=== PATIENT | male | born 1985 | race American Indian/Alaskan Native ===

== ENCOUNTER 2018-08-08 17:44 | Emergency (ER) | payer SELFPAY ==
[2018-08-08 17:58] VITALS: BP 121/89
== END 2018-08-08 22:30 | disposition left against medical advice (07) ==
LOC: ED 17:44
DX: R50.9 Fever, unspecified (principal); R07.89 Other chest pain; Z53.21 Procedure and treatment not carried out due to patient leaving prior to being seen by health care provider

== ENCOUNTER 2018-10-24 04:43 | Emergency (ER) | payer OTHER ==
[2018-10-24 04:50] VITALS: BP 129/84
--- NOTE | 2018-10-24 05:35 | XRay Report ---
PROCEDURE: XR CHEST ROUTINE 2V TECHNIQUE: PA and lateral chest radiographs were obtained. HISTORY: cough and chest pain COMPARISONS: June 17, 2018. FINDINGS: Heart: Normal. Mediastinum/Vessels: Normal. Lungs/Pleural space: Normal. Bony thorax: No acute osseous abnormality. IMPRESSION: Normal examination. This document is electronically signed by Nikolay Puga MD., October 24 2018 05:33:01 AM ET
--- NOTE | 2018-10-24 08:02 | Emergency Department Report ---
- General Chief Complaint: Chest Pain Stated Complaint: CHEST PAIN BODY CHILLS Time Seen by Provider: 10/24/18 07:50 Source: patient Mode of arrival: Ambulatory Limitations: No Limitations - History of Present Illness Initial Comments: Pt presents to the ED with c/o a cough that began two days ago. He has associated subjective fever, generalized body aches, mild SOB, and chest ti ghtness after an episode of frequent coughing. He denies any N/V, diaphoresis, sore throat, or any other symptoms. The patient states that he took motrin today for the subjective fever. He denies any PMHx. The patient states he gets bronchitis yearly. He denies any recent surgery, recent travel, or recent immobilization. He denies any personal or family hx of cardiac issues. - Related Data Previous Rx's Medication Instructions Recorded Last Taken Type Hyoscyamine Subl [Levsin Sl 0.125 0.125 mg SL Q6HR PRN #20 tab 06/17/18 Unknown Rx TAB] Ondansetron [Zofran Odt] 4 mg PO Q8HR #20 tab.rapdis 06/17/18 Unknown Rx ALBUTEROL Inhaler (OR & NICU) 2 puff IH QID PRN #200 inhalation 10/24/18 Unknown Rx [Proair] Azithromycin [Zithromax Z-SAQIB] 250 mg PO DAILY #6 tab 10/24/18 Unknown Rx Prednisone [predniSONE 10 mg 10 mg PO .TAPER #1 tab.ds.pk 10/24/18 Unknown Rx (6-Day Pack, 21 Tabs)] guaiFENesin/DEXTROMETHORPHAN 1 each PO Q8HR #20 capsule 10/24/18 Unknown Rx [Robitussin Trhky-Mdjcl-Rtlr Dm] Allergies Allergy/AdvReac Type Severity Reaction Status Date / Time aspirin AdvReac Unknown Verified 08/22/15 17:41 ED Review of Systems ROS: Stated complaint: CHEST PAIN BODY CHILLS Other details as noted in HPI Comment: All other systems reviewed and negative ED Past Medical Hx - Past Medical History Additional medical history: Chronic bronchitis - Surgical History Additional Surgical History: surgery to left 5th finger as a child. hernia repair - Social History Smoking Status: Current Every Day Smoker Substance Use Type: None - Medications Home Medications: Home Medications Medication Instructions Recorded Confirmed Last Taken Type Hyoscyamine Subl [Levsin Sl 0.125 0.125 mg SL Q6HR PRN #20 tab 06/17/18 Unknown Rx TAB] Ondansetron [Zofran Odt] 4 mg PO Q8HR #20 tab.rapdis 06/17/18 Unknown Rx ALBUTEROL Inhaler (OR & NICU) 2 puff IH QID PRN #200 inhalation 10/24/18 Unknown Rx [Proair] Azithromycin [Zithromax Z-SAQIB] 250 mg PO DAILY #6 tab 10/24/18 Unknown Rx Prednisone [predniSONE 10 mg 10 mg PO .TAPER #1 tab.ds.pk 10/24/18 Unknown Rx (6-Day Pack, 21 Tabs)] guaiFENesin/DEXTROMETHORPHAN 1 each PO Q8HR #20 capsule 10/24/18 Unknown Rx [Robitussin Ejzcx-Dclnm-Lpyw Dm] ED Physical Exam - General Limitations: No Limitations General appearance: alert, in no apparent distress - Head Head exam: Present: atraumatic, normocephalic - Eye Eye exam: Present: normal appearance - ENT ENT exam: Present: normal orophraynx, mucous membranes moist, normal external ear exam - Neck Neck exam: Present: normal inspection. Absent: meningismus - Respiratory Respiratory exam: Present: normal lung sounds bilaterally. Absent: respiratory distress, wheezes, rales, rhonchi, stridor, chest wall tenderness, accessory muscle use, decreased breath sounds, prolonged expiratory - Cardiovascular Cardiovascular Exam: Present: regular rate, normal rhythm, normal heart sounds. Absent: systolic murmur, rubs, gallop - Extremities Exam Extremities exam: Absent: pedal edema - Neurological Exam Neurological exam: Present: alert, oriented X3 - Psychiatric Psychiatric exam: Present: normal affect, normal mood ED Course Vital Signs 10/24/18 10/24/18 04:48 05:05 Temperature 98.7 F 98.7 F Pulse Rate 86 86 Respiratory 20 18 Rate Blood Pressure 129/84 129/84 O2 Sat by Pulse 99 Oximetry ED Medical Decision Making - EKG Data EKG shows normal: sinus rhythm, axis, intervals, QRS complexes, ST-T waves Rate: normal - Radiology Data Radiology results: report reviewed CXR no acute process - Medical Decision Making Pt presents with a cough x2 days. Associated subjective fever, generalized body aches, mild SOB, chest tightness after coughing. CXR and EKG are normal. Pt has no cardiac or PE/DVT risk factors. Pt states he gets bronchitis yearly. Will tx patient as acute bronchitis. Discussed with pt his results and advised to take all medication as prescribed. Advised pt to follow up with PCP in the next 2-3 days. Discussed with pt return to the ED if any new or worsening symptoms. - Differential Diagnosis Bronchitis, PNA, Viral syndrome, URI Critical care attestation.: If time is entered above; I have spent that time in minutes in the direct care of this critically ill patient, excluding procedure time. ED Disposition Clinical Impression: Acute bronchitis Qualifiers: Bronchitis organism: unspecified organism Qualified Code(s): J20.9 - Acute bronchitis, unspecified Disposition: - TO HOME OR SELFCARE Is pt being admited?: No Does the pt Need Aspirin: No Condition: Stable Instructions: Acute Bronchitis (ED) Additional Instructions: Follow up with primary care in the next 2-3 days. Return to the ED for any new or worsening symptoms. Take all medication as prescribed. Prescriptions: Prednisone [predniSONE 10 mg (6-Day Pack, 21 Tabs)] 10 mg PO .TAPER #1 tab.ds.pk ALBUTEROL Inhaler (OR & NICU) [Proair] 2 puff IH QID PRN #200 inhalation PRN Reason: Shortness Of Breath guaiFENesin/DEXTROMETHORPHAN [Robitussin Rdidn-Svajd-Fxgq Dm] 1 each PO Q8HR #20 capsule Azithromycin [Zithromax Z-SAQIB] 250 mg PO DAILY #6 tab Referrals: [facility] [Primary Care Provider] - 2-3 Days Time of Disposition: 08:05 Print Language: LATVIAN
== END 2018-10-24 08:18 | disposition home or self-care (01) ==
LOC: ED 04:43
DX: J20.9 Acute bronchitis, unspecified (principal); F17.200 Nicotine dependence, unspecified, uncomplicated
CPT/HCPCS: 71046; 93005; 93010

== ENCOUNTER 2019-04-08 04:34 | Emergency (ER) | payer SELFPAY ==
[2019-04-08 04:41] VITALS: BP 114/76
--- NOTE | 2019-04-08 06:51 | Emergency Department Report ---
Minor Respiratory - HPI Chief Complaint: Upper Respiratory Infection Stated Complaint: SORE THROAT, CHEST PAIN, SEAN, BODY ACHES Time Seen by Provider: 04/08/19 06:45 Duration: 2 Days Minor Respiratory: Yes Rhinorrhea, Yes Sore Throat, Yes Able to Tolerate Fluids, Yes Cough, No Ear Pain, No Sick Contacts, No Hemoptysis, No Chest Pain, No Shortness of Breath, No Fever Other History: 33-year-old -[place] male presents to the emergency room for sore throat, sneezing, cough, nasal congestion and runny nose 2 days. Patient reports he has tried taking chdy-nbi-lebuqro Mucinex and TheraFlu. Denies any fever or chills but does complain of body aches. He reports a past medical history of bronchitis. ED Review of Systems ROS: Stated complaint: SORE THROAT, CHEST PAIN, SEAN, BODY ACHES Other details as noted in HPI Comment: All other systems reviewed and negative ED Past Medical Hx - Past Medical History Previous Medical History?: Yes Additional medical history: Chronic bronchitis - Surgical History Past Surgical History?: Yes Additional Surgical History: surgery to left 5th finger as a child. hernia repair - Social History Smoking Status: Current Every Day Smoker Substance Use Type: None - Medications Home Medications: Home Medications Medication Instructions Recorded Confirmed Last Taken Type Hyoscyamine Subl [Levsin Sl 0.125 0.125 mg SL Q6HR PRN #20 tab 06/17/18 Unknown Rx TAB] Ondansetron [Zofran Odt] 4 mg PO Q8HR #20 tab.rapdis 06/17/18 Unknown Rx ALBUTEROL Inhaler (OR & NICU) 2 puff IH QID PRN #200 inhalation 10/24/18 Unknown Rx [Proair] Azithromycin [Zithromax Z-SAQIB] 250 mg PO DAILY #6 tab 10/24/18 Unknown Rx Prednisone [predniSONE 10 mg 10 mg PO .TAPER #1 tab.ds.pk 10/24/18 Unknown Rx (6-Day Pack, 21 Tabs)] guaiFENesin/DEXTROMETHORPHAN 1 each PO Q8HR #20 capsule 10/24/18 Unknown Rx [Robitussin Uewxq-Lwqbt-Zqvk Dm] Amoxicillin/K Clav Tab [Augmentin 1 tab PO BID 7 Days #14 tab 12/26/18 Unknown Rx 875 mg] Acetaminophen [Acetaminophen 8 650 mg PO Q8H PRN #21 tablet.er 04/08/19 Unknown Rx Hour] Benzonatate [Tessalon Perles] 100 mg PO Q8HR PRN #21 capsule 04/08/19 Unknown Rx Cetirizine HCl/Pseudoephedrine 1 each PO DAILY #30 tab.er.12h 04/08/19 Unknown Rx [Zyrtec-D Tablet] Minor Respiratory Exam - Exam General: Vital signs noted. No distress. Alert and acting appropriately. HEENT: Yes Pharyngeal Erythema, Yes Moist Mucous Membranes, Yes Rhinorrhea, No Pharyngeal Exudates, No Conjuctival Injection, No Frontal Tenderness, No Maxillary Tenderness Neck: Yes Adenopathy, Yes Supple Lungs: Yes Good Air Exchange, No Wheezes, No Ronchi, No Stridor, No Cough, No Labored Respirations, No Retractions, No Use of Accessory Muscles, No Other Abnormal Lung Sounds Heart: Yes Regular, No Murmur Abdomen: Yes Normal Bowel Sounds, No Tenderness, No Peritoneal Signs Neurologic: Alert and oriented, no deficits. Musculoskeletal: Unremarkable. ED Course Vital Signs 04/08/19 04:40 Temperature 98.5 F Pulse Rate 79 Respiratory 18 Rate Blood Pressure 114/76 O2 Sat by Pulse 97 Oximetry ED Medical Decision Making - Medical Decision Making 33-year-old -[place] male presents to the emergency room for sore throat, sneezing, cough, nasal congestion and runny nose 2 days. Patient rep orts he has tried taking ttsi-edw-uouhfaq Mucinex and TheraFlu. Denies any fever or chills but does complain of body aches. He reports a past medical history of bronchitis. Patient will be placed on Zyrtec D Tessalon Perles. Patient is to follow-up with his primary care provider if his symptoms persist or gets worse. Critical care attestation.: If time is entered above; I have spent that time in minutes in the direct care of this critically ill patient, excluding procedure time. ED Disposition Clinical Impression: Allergic rhinitis Disposition: [id number] TO HOME OR SELFCARE Is pt being admited?: No Does the pt Need Aspirin: No Condition: Stable Instructions: Allergic Rhinitis (ED) Additional Instructions: Take medications as prescribed. Increase her water intake advance her diet as tolerated. Follow up with the primary care provider if his symptoms persist or gets worse. Prescriptions: Acetaminophen [Acetaminophen 8 Hour] 650 mg PO Q8H PRN #21 tablet.er PRN Reason: Pain , Severe (7-10) Benzonatate [Tessalon Perles] 100 mg PO Q8HR PRN #21 capsule PRN Reason: Cough Cetirizine HCl/Pseudoephedrine [Zyrtec-D Tablet] 1 each PO DAILY #30 tab.er.12h Referrals: DAQUAN OROSCO MD [Primary Care Provider] - 3-5 Days Forms: Work/School Release Form(ED)
== END 2019-04-08 07:01 | disposition home or self-care (01) ==
LOC: ED 04:34
DX: J30.9 Allergic rhinitis, unspecified (principal); F17.200 Nicotine dependence, unspecified, uncomplicated; Z98.890 Other specified postprocedural states; Z79.899 Other long term (current) drug therapy; Z88.6 Allergy status to analgesic agent
CPT/HCPCS: 99282